=== PATIENT | female | born 1945 | race Caucasian/White ===

== ENCOUNTER 2020-07-31 05:15 | Inpatient (IN) | payer MEDICARE, MEDICAID ==
[~2020-07-31] VITALS: Ht 170.2 cm; Wt 76.5 kg
--- NOTE | 2020-07-31 07:59 | NUR ---
IFT from [facility]. This pt lives alone and ambulates with a cane. Hx of afib, PAD with stents in both legs, stent in carotid artery (believes R side) and L breast mastectomy and lumpectomy. Pt believes her symptoms of L weakness started either Friday or Friday, describes LUE weakeness first (being unable to hold salt shaker), then LLE weakness (worried about falling at home), then L facial droop. First incounter with this RN, mild dysphasia noted. 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
[2020-07-31] MEDS ORDERED: ONDANSETRON 2MG/ML, 2ML IVPush PRN (08:00)
[2020-07-31] MEDS ORDERED: DOCUSATE 100 MG CAPSULE PO PRN (08:00)
[2020-07-31] MEDS ORDERED: MELATONIN 5 MG TABLET PO PRN (08:00)
[2020-07-31] MEDS ORDERED: hydrALAzine 20 MG/ML, 1ML IVPush PRN (08:00)
[2020-07-31] MEDS ORDERED: LABETALOL 5MG/ML, 20ML IVPush PRN (08:00)
--- NOTE | 2020-07-31 08:10 | NUR ---
Pt has nicotine patch in place from sending facility.
[2020-07-31] MEDS ORDERED: NICOTINE 14MG/24 HR PATCH.TD24 TD SCH (09:00)
[2020-07-31] MEDS: APIXABAN 5 MG TABLET PO SCH ×2 (09:25→20:50)
[2020-07-31] MEDS: SODIUM CHLORIDE FLUSH 10ML SYR IVF SCH ×2 (09:26→21:11)
[2020-07-31] MEDS: CHLORHEXIDINE 15 ML UDC MM SCH ×2 (09:26→21:00)
[2020-07-31 09:33] VITALS: BP 146/75
[2020-07-31] MEDS ORDERED: AZIT500T2 PO (09:56)
[2020-07-31] MEDS ORDERED: GLIP5TAB10 PO (09:56)
[2020-07-31] MEDS ORDERED: METO-93 PO (09:56)
[2020-07-31] MEDS ORDERED: ATOR-2 PO (09:56)
[2020-07-31 10:27] LABS: MICROSCOPIC NOT IND
[2020-07-31] MEDS: INSULIN LISPRO 100 UNITS/ML, PEN SQ-INSULIN SCH ×3 (11:10→21:14)
[2020-07-31 11:51] VITALS: BP 183/74
[2020-07-31] MEDS ORDERED: ALBUTEROL HFA 90 MCG/SPRAY INH PRN (13:00)
[2020-07-31 20:03] VITALS: BP 159/78
[2020-07-31] MEDS: ATORVASTATIN 80 MG TABLET PO SCH (21:00)
[2020-08-01 00:19] VITALS: BP 152/65
[2020-08-01] MEDS: ASPIRIN 81 MG TABLET EC PO SCH (04:45)
[2020-08-01 04:58] LABS: BASOPHILS % (AUTO) 1 % (0-1); EOSINOPHILS % (AUTO) 2 % (1-7); LYMPHOCYTES % (AUTO) 27 % (22-44); MEAN CORPUSCULAR HEMOGLOBIN 30.6 pg (27.0-34.8); MEAN CORPUSCULAR HGB CONC 34.3 g/dL (32.4-35.8); MONOCYTES % (AUTO) 9 % (2-9); NEUTROPHILS % (AUTO) 62 % (42-75); PLATELET COUNT 676 x10^3/uL (130-400); RED BLOOD COUNT 4.67 x10^6/uL (3.82-5.3)
[2020-08-01 05:02] LABS: MD NO
[2020-08-01 05:08] LABS: ALBUMIN 3.2 g/dL (3.4-5.0); ANION GAP 8 mmol/L (5-15); CALCIUM 9.1 mg/dL (8.5-10.1); CHLORIDE 110 mmol/L (98-107)
[2020-08-01 05:12] LABS: ALANINE AMINOTRANSFERASE 24 U/L (12-78); ALKALINE PHOSPHATASE 89 U/L (45-117); BILIRUBIN,TOTAL 0.6 mg/dL (0.2-1.0); CHOL/HDL RATIO 2.6; CHOLESTEROL, TOTAL 119 mg/dL (140-239); CREATININE 0.68 mg/dL (0.55-1.02); HDL CHOL % 39 % (28-40); HDL CHOLESTEROL (DIRECT) 46 mg/dL (40-60); LDL CHOLESTEROL,CALCULATED 59 mg/dL (54-169); LDL/HDL RATIO 1.3 (0.5-3.0); TOTAL PROTEIN 6.1 g/dL (6.4-8.2); TRIGLYCERIDES 72 mg/dL (50-200); VLDL CHOLESTEROL 14 mg/dL (0-25)
[2020-08-01 07:11] VITALS: BP 147/64
[2020-08-01] MEDS: INSULIN LISPRO 100 UNITS/ML, PEN SQ-INSULIN SCH ×4 (07:59→20:16)
[2020-08-01] MEDS: APIXABAN 5 MG TABLET PO SCH ×2 (08:32→20:25)
[2020-08-01] MEDS: NICOTINE 21 MG/24 HR PATCH.TD24 TD SCH (08:32)
[2020-08-01] MEDS: SODIUM CHLORIDE FLUSH 10ML SYR IVF SCH ×2 (08:33→20:26)
[2020-08-01] MEDS: CHLORHEXIDINE 15 ML UDC MM SCH ×2 (08:33→20:24)
[2020-08-01 14:16] VITALS: BP 166/75
[2020-08-01 19:50] VITALS: BP 195/79
[2020-08-01] MEDS: ATORVASTATIN 80 MG TABLET PO SCH (20:25)
[2020-08-01 21:34] VITALS: BP 156/74
[2020-08-02 01:27] VITALS: BP 162/68
[2020-08-02] MEDS: ASPIRIN 81 MG TABLET EC PO SCH (04:42)
[2020-08-02] MEDS: INSULIN LISPRO 100 UNITS/ML, PEN SQ-INSULIN SCH ×4 (07:00→20:12)
[2020-08-02 08:29] VITALS: BP 159/73
[2020-08-02] MEDS: APIXABAN 5 MG TABLET PO SCH (08:53)
[2020-08-02] MEDS: CHLORHEXIDINE 15 ML UDC MM SCH ×2 (09:00→20:12)
[2020-08-02] MEDS: SODIUM CHLORIDE FLUSH 10ML SYR IVF SCH ×2 (09:06→20:12)
[2020-08-02] MEDS: NICOTINE 21 MG/24 HR PATCH.TD24 TD SCH (09:08)
[2020-08-02 12:35] VITALS: BP 165/92
[2020-08-02 18:45] VITALS: BP 166/73
[2020-08-02] MEDS: ATORVASTATIN 80 MG TABLET PO SCH (20:12)
[2020-08-03 02:49] VITALS: BP 155/68
[2020-08-03] MEDS: ASPIRIN 81 MG TABLET EC PO SCH (05:19)
[2020-08-03 06:57] VITALS: BP 155/75
[2020-08-03] MEDS: INSULIN LISPRO 100 UNITS/ML, PEN SQ-INSULIN SCH ×4 (07:00→20:05)
[2020-08-03] MEDS: SODIUM CHLORIDE FLUSH 10ML SYR IVF SCH ×2 (08:20→20:05)
[2020-08-03] MEDS: CHLORHEXIDINE 15 ML UDC MM SCH ×2 (08:20→20:05)
[2020-08-03] MEDS: NICOTINE 21 MG/24 HR PATCH.TD24 TD SCH (08:20)
[2020-08-03 13:23] VITALS: BP 182/86
[2020-08-03 13:29] VITALS: BP 117/75
[2020-08-03 19:28] VITALS: BP 160/89
[2020-08-03] MEDS: ATORVASTATIN 80 MG TABLET PO SCH (20:05)
[2020-08-04 00:25] VITALS: BP 153/81
[2020-08-04] MEDS: ASPIRIN 81 MG TABLET EC PO SCH (05:27)
[2020-08-04 06:51] VITALS: BP 175/93
[2020-08-04] MEDS ORDERED: HEPARIN 1,000 UNITS/ML, 10ML ONE (07:05)
[2020-08-04] MEDS ORDERED: LIDOCAINE/PF 1%, 30ML ONE (07:05)
[2020-08-04] MEDS ORDERED: THROMBIN 20,000 UNIT VIAL TP ONE ×2 (07:05→12:43)
[2020-08-04] MEDS ORDERED: BACITRACIN 50,000 UNIT ONE (07:05)
[2020-08-04] MEDS ORDERED: PROTAMINE SULFATE 10 MG/ML, 5ML ONE (07:05)
[2020-08-04 07:13] VITALS: BP 118/78
[2020-08-04 07:20] LABS: BASOPHILS % (AUTO) 1 % (0-1); EOSINOPHILS % (AUTO) 2 % (1-7); LYMPHOCYTES % (AUTO) 28 % (22-44); MEAN CORPUSCULAR HEMOGLOBIN 30.4 pg (27.0-34.8); MEAN CORPUSCULAR HGB CONC 33.8 g/dL (32.4-35.8); MEAN PLATELET VOLUME 7.7 fL (7.4-10.4); MONOCYTES % (AUTO) 10 % (2-9); NEUTROPHILS % (AUTO) 59 % (42-75); PLATELET COUNT 658 x10^3/uL (130-400); RED BLOOD COUNT 4.85 x10^6/uL (3.82-5.3); RED CELL DISTRIBUTION WIDTH 14.8 % (9.6-15.2)
[2020-08-04 07:25] LABS: MD NO
[2020-08-04 07:29] LABS: ANION GAP 8 mmol/L (5-15); CALCIUM 9.3 mg/dL (8.5-10.1); CHLORIDE 109 mmol/L (98-107)
[2020-08-04 07:30] LABS: CREATININE 0.75 mg/dL (0.55-1.02)
[2020-08-04 07:35] LABS: INTERNATIONAL NORMALIZED RATIO 1.16 (0.93-1.1); PROTHROMBIN TIME 12.4 Seconds (9.6-11.5)
[2020-08-04] MEDS: INSULIN LISPRO 100 UNITS/ML, PEN SQ-INSULIN SCH ×4 (07:46→20:18)
[2020-08-04] MEDS: NICOTINE 21 MG/24 HR PATCH.TD24 TD SCH (08:15)
[2020-08-04] MEDS: SODIUM CHLORIDE FLUSH 10ML SYR IVF SCH ×2 (08:16→19:38)
[2020-08-04] MEDS: CHLORHEXIDINE 15 ML UDC MM SCH ×2 (09:05→20:17)
[2020-08-04] MEDS ORDERED: HYDROmorphone 1 MG/ML, 1ML INJ IVPush PRN ×2 (10:00)
[2020-08-04] MEDS ORDERED: ONDANSETRON 2MG/ML, 2ML IVPush PRN (10:00)
[2020-08-04] MEDS ORDERED: FENTANYL PF 100 MCG/2ML IV PRN (10:00)
[2020-08-04] MEDS ORDERED: PROMETHAZINE 25 MG/ML, 1ML IVPush PRN (10:00)
[2020-08-04] MEDS ORDERED: HYDROcodone/APAP 7.5-325MG/15ML UDC PO PRN (10:00)
[2020-08-04] MEDS ORDERED: OXYcodone 5 MG/5 ML ORAL.SOL UDC PO PRN (10:00)
[2020-08-04] MEDS ORDERED: MEPERIDINE/PF 25MG/0.5ML IVPush PRN ×3 (10:00)
[2020-08-04] MEDS ORDERED: SUCCINYLCHOLINE 20 MG/ML, 10ML ONE (10:02)
[2020-08-04] MEDS ORDERED: ROCURONIUM 10MG/ML,5ML ONE (10:02)
[2020-08-04] MEDS ORDERED: NEOSTIGMINE 1 MG/ML, 10ML ONE (10:02)
[2020-08-04] MEDS ORDERED: FENTANYL PF 100 MCG/2ML ONE ×2 (10:02→12:14)
[2020-08-04] MEDS ORDERED: DEXAMETHASONE 4 MG/ML, 1ML ONE (10:02)
[2020-08-04] MEDS ORDERED: ONDANSETRON 2MG/ML, 2ML ONE ×2 (10:02→13:53)
[2020-08-04] MEDS ORDERED: GLYCOPYRROLATE 0.2MG/1ML, 5ML ONE (10:02)
[2020-08-04] MEDS ORDERED: CEFAZOLIN 1,000 MG ONE (10:02)
[2020-08-04] MEDS ORDERED: PROPOFOL 10 MG/ML, 20ML ONE (10:02)
[2020-08-04] MEDS ORDERED: HEPARIN 1,000 UNITS/ML, 10ML IV ONE (11:18)
[2020-08-04] MEDS ORDERED: BACITRACIN 50,000 UNIT IRRIG ONE (11:18)
[2020-08-04] MEDS ORDERED: LABETALOL 5MG/ML, 20ML ONE (13:46)
[2020-08-04] MEDS ORDERED: hydrALAzine 20 MG/ML, 1ML ONE (13:46)
[2020-08-04] MEDS ORDERED: LABETALOL 5MG/ML, 20ML IVPush ONE (14:00)
[2020-08-04] MEDS: LABETALOL 5MG/ML, 20ML IV PRN ×2 (15:12→17:07)
[2020-08-04] MEDS ORDERED: NITROPRUSSIDE 50 MG in DEXTROSE 5% 248 ML IV SCH (15:30)
[2020-08-04] MEDS ORDERED: MEPERIDINE/PF 50 MG/ML IV PRN (15:30)
[2020-08-04] MEDS: POTASSIUM CHLORIDE 20 MEQ in LACTATED RINGERS 1,000 ML IV SCH (16:14)
[2020-08-04] MEDS ORDERED: SUGAMMADEX 200 MG/2 ML IVPush ONE (16:36)
[2020-08-04] MEDS ORDERED: PHENYLEPHRINE 10 MG/ML ONE (16:36)
[2020-08-04] MEDS: CEFAZOLIN PMX 1GM/50ML 50 ML IVPB SCH (19:38)
[2020-08-04] MEDS: HYDROcodone/APAP 5/325 TABLET PO PRN (20:17)
[2020-08-04] MEDS: ATORVASTATIN 80 MG TABLET PO SCH (20:22)
[2020-08-05] MEDS: POTASSIUM CHLORIDE 20 MEQ in LACTATED RINGERS 1,000 ML IV SCH ×2 (00:24→09:30)
[2020-08-05] MEDS: HYDROcodone/APAP 5/325 TABLET PO PRN ×3 (00:24→23:03)
[2020-08-05] MEDS: CEFAZOLIN PMX 1GM/50ML 50 ML IVPB SCH (03:40)
[2020-08-05] MEDS: ASPIRIN 81 MG TABLET EC PO SCH (05:20)
[2020-08-05] MEDS ORDERED: METOPROLOL SUCCINATE 50 MG TAB.ER.24H PO SCH (06:00)
[2020-08-05 07:58] LABS: BASOPHILS % (AUTO) 0 % (0-1); EOSINOPHILS % (AUTO) 0 % (1-7); LYMPHOCYTES % (AUTO) 10 % (22-44); MEAN CORPUSCULAR HEMOGLOBIN 30.3 pg (27.0-34.8); MEAN CORPUSCULAR HGB CONC 33.5 g/dL (32.4-35.8); MEAN PLATELET VOLUME 8.2 fL (7.4-10.4); MONOCYTES % (AUTO) 10 % (2-9); NEUTROPHILS % (AUTO) 80 % (42-75); PLATELET COUNT 701 x10^3/uL (130-400); RED BLOOD COUNT 4.19 x10^6/uL (3.82-5.3); RED CELL DISTRIBUTION WIDTH 14.9 % (9.6-15.2)
[2020-08-05 08:10] LABS: ALANINE AMINOTRANSFERASE 28 U/L (12-78); ALBUMIN 3.2 g/dL (3.4-5.0); ANION GAP 7 mmol/L (5-15); CALCIUM 8.6 mg/dL (8.5-10.1); CHLORIDE 104 mmol/L (98-107)
[2020-08-05 08:13] LABS: ALKALINE PHOSPHATASE 90 U/L (45-117); BILIRUBIN,TOTAL 0.4 mg/dL (0.2-1.0); TOTAL PROTEIN 6.2 g/dL (6.4-8.2)
[2020-08-05] MEDS: INSULIN LISPRO 100 UNITS/ML, PEN SQ-INSULIN SCH ×4 (08:30→21:16)
[2020-08-05 08:43] LABS: MD SCAN
[2020-08-05] MEDS: NICOTINE 21 MG/24 HR PATCH.TD24 TD SCH (09:00)
[2020-08-05] MEDS: CHLORHEXIDINE 15 ML UDC MM SCH ×2 (09:00→21:10)
[2020-08-05] MEDS: SODIUM CHLORIDE FLUSH 10ML SYR IVF SCH ×2 (09:00→21:11)
[2020-08-05 09:57] VITALS: BP 130/75
[2020-08-05] MEDS: ACETAMINOPHEN 325 MG TABLET PO PRN ×2 (12:17→17:03)
[2020-08-05 12:39] VITALS: BP 132/73
[2020-08-05 19:20] VITALS: BP 159/77
[2020-08-05] MEDS: ATORVASTATIN 80 MG TABLET PO SCH (21:10)
[2020-08-06 00:27] VITALS: BP 145/81
[2020-08-06 05:27] LABS: BASOPHILS % (AUTO) 1 % (0-1); EOSINOPHILS % (AUTO) 1 % (1-7); LYMPHOCYTES % (AUTO) 23 % (22-44); MEAN CORPUSCULAR HEMOGLOBIN 30.5 pg (27.0-34.8); MEAN CORPUSCULAR HGB CONC 33.8 g/dL (32.4-35.8); MEAN PLATELET VOLUME 8.3 fL (7.4-10.4); MONOCYTES % (AUTO) 11 % (2-9); NEUTROPHILS % (AUTO) 64 % (42-75); PLATELET COUNT 632 x10^3/uL (130-400); RED BLOOD COUNT 4.02 x10^6/uL (3.82-5.3); RED CELL DISTRIBUTION WIDTH 15.3 % (9.6-15.2)
[2020-08-06 05:32] LABS: MD NO
[2020-08-06 05:39] LABS: CHLORIDE 109 mmol/L (98-107)
[2020-08-06 05:50] LABS: ALANINE AMINOTRANSFERASE 20 U/L (12-78); ALBUMIN 3.2 g/dL (3.4-5.0); ALKALINE PHOSPHATASE 86 U/L (45-117); ANION GAP 6 mmol/L (5-15); BILIRUBIN,TOTAL 0.5 mg/dL (0.2-1.0); CALCIUM 8.5 mg/dL (8.5-10.1); CREATININE 0.83 mg/dL (0.55-1.02); TOTAL PROTEIN 5.8 g/dL (6.4-8.2)
[2020-08-06] MEDS: ASPIRIN 81 MG TABLET EC PO SCH (06:26)
[2020-08-06 06:39] VITALS: BP 159/73
[2020-08-06] MEDS: INSULIN LISPRO 100 UNITS/ML, PEN SQ-INSULIN SCH ×4 (08:23→21:00)
[2020-08-06] MEDS: CHLORHEXIDINE 15 ML UDC MM SCH ×2 (08:23→21:03)
[2020-08-06] MEDS: SODIUM CHLORIDE FLUSH 10ML SYR IVF SCH ×2 (08:23→21:03)
[2020-08-06] MEDS: NICOTINE 21 MG/24 HR PATCH.TD24 TD SCH (08:24)
[2020-08-06] MEDS: BISACODYL 10 MG SUPP PR ONE ×2 (09:00→10:05)
[2020-08-06] MEDS: APIXABAN 5 MG TABLET PO SCH ×2 (10:05→21:03)
[2020-08-06 12:23] VITALS: BP 143/79
[2020-08-06] MEDS: ACETAMINOPHEN 325 MG TABLET PO PRN (15:45)
[2020-08-06 19:42] VITALS: BP 151/73
[2020-08-06] MEDS: ATORVASTATIN 80 MG TABLET PO SCH (21:03)
[2020-08-07] VITALS: BP 171/81
[2020-08-07 00:30] VITALS: BP 168/80
[2020-08-07] MEDS: ACETAMINOPHEN 325 MG TABLET PO PRN (00:32)
[2020-08-07 06:49] VITALS: BP 157/71
[2020-08-07] MEDS: INSULIN LISPRO 100 UNITS/ML, PEN SQ-INSULIN SCH ×2 (08:07→11:21)
[2020-08-07] MEDS: NICOTINE 21 MG/24 HR PATCH.TD24 TD SCH (08:07)
[2020-08-07] MEDS: APIXABAN 5 MG TABLET PO SCH (08:08)
[2020-08-07] MEDS: CHLORHEXIDINE 15 ML UDC MM SCH (08:08)
[2020-08-07] MEDS: SODIUM CHLORIDE FLUSH 10ML SYR IVF SCH (08:08)
[2020-08-07] MEDS ORDERED: MAGNESIUM CITRATE 300ML ORAL SOL PO ONE (09:30)
[2020-08-07] MEDS ORDERED: AMLODIPINE 5 MG TABLET PO SCH (09:30)
[2020-08-07] MEDS ORDERED: APIX5TAB PO (11:15)
[2020-08-07] MEDS ORDERED: AMLO-150 PO (11:15)
[2020-08-07] MEDS ORDERED: NICO-587 TD (11:15)
[2020-08-07] MEDS ORDERED: ATOR-2 PO (11:15)
[2020-08-07] MEDS ORDERED: HYDR-1067 PO (11:15)
[2020-08-07] MEDS ORDERED: METOPROLOL SUCCINATE 50 MG TAB.ER.24H PO SCH (11:30)
[2020-08-07 12:16] VITALS: BP 169/75
[2020-08-07] MEDS ORDERED: INSU100I13 SQ-INSULIN (12:29)
== END 2020-08-07 13:40 | disposition home health service (06) | DRG 38 ==
LOC: ED 07:10 → EDIP 07:35 → 4WST 08:46 → CCU 08-04 13:26 → 4WST 08-05 09:20 → DCLOUNGE 08-07 13:21
PROVIDERS: ADMIT Hospitalist; ATTEND Hospitalist
PROC: 03CM0ZZ Extirpation of Matter from Right External Carotid Artery, Open Approach (ICD-10-PCS; 2020-08-04)
PROC: 03UH0JZ Supplement Right Common Carotid Artery with Synthetic Substitute, Open Approach (ICD-10-PCS; 2020-08-04)
PROC: 03UM0JZ Supplement Right External Carotid Artery with Synthetic Substitute, Open Approach (ICD-10-PCS; 2020-08-04)
PROC: 03CH0ZZ Extirpation of Matter from Right Common Carotid Artery, Open Approach (ICD-10-PCS; principal; 2020-08-04 11:00)
DX: I63.9 Cerebral infarction, unspecified (principal); I48.20 Chronic atrial fibrillation, unspecified; D68.69 Other thrombophilia; I65.21 Occlusion and stenosis of right carotid artery; Z20.822 Contact with and (suspected) exposure to COVID-19; E11.51 Type 2 diabetes mellitus with diabetic peripheral angiopathy without gangrene; R47.81 Slurred speech; I10 Essential (primary) hypertension; J44.9 Chronic obstructive pulmonary disease, unspecified; F17.210 Nicotine dependence, cigarettes, uncomplicated; Z60.2 Problems related to living alone; D47.3 Essential (hemorrhagic) thrombocythemia; E78.5 Hyperlipidemia, unspecified; Z88.0 Allergy status to penicillin; Z88.2 Allergy status to sulfonamides; Z88.5 Allergy status to narcotic agent; Z88.8 Allergy status to other drugs, medicaments and biological substances; Z79.01 Long term (current) use of anticoagulants; Z85.3 Personal history of malignant neoplasm of breast; Z90.49 Acquired absence of other specified parts of digestive tract; Z90.12 Acquired absence of left breast and nipple; Z82.49 Family history of ischemic heart disease and other diseases of the circulatory system; Z79.899 Other long term (current) drug therapy; Z82.3 Family history of stroke
CPT/HCPCS: 36415; 70551; 80048; 80053; 80061; 81003; 82962; 85025; 85610; 87081; 87635; 88300; 93005; 93306; 93880; 99285; C1729; G0378; J0690; J1100; J1170; J1644; J2405; J2704; J2710; J2720; J3010; J3480; J7060; 92523-GN; C1768; J0330; J0360; J1815; J2370; J7120